=== PATIENT | male | born 1960 | race Caucasian/White ===

== ENCOUNTER → 2018-02-14 | Outpatient (CLI) | payer OTHER ==
[~2018-02-14] MED LIST: ASPIRIN81 M1 PO; BACTRIM DS 8001 TA1 PO; EC NAPROSYN500 MG PO; HYDROCODONE BIT1 T11 PO; KEFLEX500 MG PO; LISINOPRIL/HCTZ1 TA1 PO; METOPROLOL SUCC50 M2 PO; MULTIPLE VITAMI1 CAP PO; NUCYNTA100 MG PO; PAROXETINE40 MG PO; POTASSIUM CHELA99 MG PO; PRILOSEC20 MG PO; TRAZADONE HYDR100 MG PO
== END | disposition home or self-care (01) ==
LOC: RAD 12:13
DX: M17.0 Bilateral primary osteoarthritis of knee (principal); M89.9 Disorder of bone, unspecified

== ENCOUNTER 2021-01-14 00:30 | Emergency (ER) | payer OTHER ==
[~2021-01-14] VITALS: Ht 177.8 cm; Wt 149.7 kg
[2021-01-14 00:49] LABS: BASO # 0.1 10*3/uL (0.0-0.1); BASO % 0.8 % (0.0-1.0); EOS # 0.4 10*3/uL (0.0-0.4); HEMATOCRIT 50.3 % (42.0-52.0); LYMPH # 3.3 10*3/uL (1.3-4.4); LYMPH % 41.7 % (27.0-41.0); MEAN CELL VOLUME 92.3 fl (80.0-94.0); MEAN CORPUSCULAR HGB 29.9 pg (27.0-31.0); MEAN CORPUSCULAR HGB CONC 32.4 g/dl (33.0-37.0); MEAN PLATELET VOLUME 10.1 fl (9.6-12.3); MONO # 0.8 10*3/uL (0.1-1.0); MONO % 9.5 % (3.0-9.0); NEUT # 3.4 10*3/uL (2.3-7.9); NEUT % 42.7 % (47.0-73.0); PLATELET COUNT AUTOMATED 218 10*3/uL (130-400); RED BLOOD COUNT 5.45 10*6/uL (4.50-5.90); RED CELL DISTRI WIDTH 13.8 % (0-14.5); WHITE BLOOD COUNT 7.9 10*3/uL (4.8-10.8)
[2021-01-14 01:05] LABS: ALBUMIN 3.5 gm/dl (3.1-4.5); ALKALINE PHOSPHATASE 208 U/L (45-117); BUN 31 mg/dl (7-24); CHLORIDE 108 mmol/L (98-107); CREATININE 1.27 mg/dL (0.70-1.30); POTASSIUM 4.4 mmol/L (3.5-5.1); SGOT/AST 27 IU/L (3-35); SGPT/ALT 24 U/L (12-78); SODIUM 140 mmol/L (136-145); TOTAL PROTEIN 6.7 gm/dL (6.4-8.2)
[2021-01-14 01:10] LABS: TROPONIN I < 0.015 ng/ml (<0.045)
[2021-01-14 03:01] VITALS: BP 107/61
[2021-01-14] MEDS ORDERED: DIPHENHYDRAMINE50 M1 PO (03:14)
[2021-01-14] MEDS ORDERED: PREDNISONE10 M1 PO (03:14)
== END 2021-01-14 03:25 | disposition left against medical advice (07) ==
LOC: ED 00:30
PROVIDERS: Emergency Medicine
DX: T88.6XXA Anaphylactic reaction due to adverse effect of correct drug or medicament properly administered, initial encounter (principal); R07.9 Chest pain, unspecified; T36.8X5A Adverse effect of other systemic antibiotics, initial encounter; Z79.899 Other long term (current) drug therapy; Z79.82 Long term (current) use of aspirin; X58.XXXA Exposure to other specified factors, initial encounter; Y92.89 Other specified places as the place of occurrence of the external cause